=== PATIENT | male | born 1950 | race Caucasian/White ===

== ENCOUNTER 2017-09-14 06:08 | Day surgery (SDC) | payer MEDICARE, MEDICAID ==
[~2017-09-14] VITALS: Ht 162.6 cm; Wt 74.2 kg
[2017-09-14] MEDS ORDERED: FLOMAX PO (07:24)
[2017-09-14] MEDS ORDERED: OMEPRAZOLE PO (07:24)
[2017-09-14] MEDS ORDERED: PROPOFOL 80 ML ONE (07:38)
[2017-09-14 07:42] VITALS: Ht 162.6 cm; Wt 74.2 kg
[2017-09-14 07:45] VITALS: BP 132/76; PULSE 49; RESP 18
--- NOTE | 2017-09-14 08:28 | OPPN ---
Date/Time of Note Date/Time of Note DATE: 09/14/17 TIME: 08:26 Operative Report Preoperative Diagnosis Positive occult blood in stool Chronic heartburn History of peptic ulcer Postoperative Diagnosis Hiatal hernia and gastroesophageal reflux disease Gastritis with erosions Transverse colon polyp was removed using biopsy forceps Internal hemorrhoids Operation/Procedure Performed Esophagogastroduodenoscopy and biopsy Colonoscopy and biopsy Surgeon see signature line paraprofessional education assistant None Anesthesia: MAC Estimated blood loss: none Transfusion Required none Specimen Gastric mucosal biopsy Colon polyp biopsy Grafts/Implants none Complications none JUAN ABRAMS MD Sep 14, 2017 08:28
[2017-09-14 09:05] VITALS: BP 147/84; PULSE 48; RESP 16
--- NOTE | 2017-09-15 07:06 | GILP ---
DATE OF PROCEDURE: NAME OF PROCEDURES: 1. Esophagogastroduodenoscopy and biopsy. 2. Colonoscopy and biopsy. SURGEON: Juan Dennis MD PREOPERATIVE DIAGNOSIS: 1. Positive occult blood in stool. 2. Chronic heartburn. 3. History of peptic ulcer disease. POSTOPERATIVE DIAGNOSES: 1. Hiatal hernia and gastroesophageal reflux disease. 2. Gastritis with erosions. 3. Gastric mucosal biopsies were taken for Helicobacter pylori test. 4. Colonoscopy all the way to the cecum. 5. Small transverse colon polyp was removed using the biopsy forceps. 6. Internal hemorrhoids. INDICATION FOR THE PROCEDURE: Mr. Lanre Angel is a 67-year-old male patient who was noted to have positive occult blood in stool. He also had chronic heartburn not completely responding to the rapy. He had history of peptic ulcer disease. The patient was scheduled for endoscopy and colonosc opy for further evaluation. The procedures and possible complications were well explained to the patient, he understood and cons ented to the procedures. DESCRIPTION OF PROCEDURE: Under the influence of anesthesia, the gastroscope was carefully introduc ed into the esophagus and under direct vision it was advanced to the stomach and through the pylorus into the duodenal bulb and descending duodenum. FINDINGS: ESOPHAGUS: The patient had hiatal hernia and gastroesophageal reflux disease. STOMACH: He had gastritis with erosions. Gastric mucosal biopsies were taken for H. pylori test. DUODENUM: Normal. COLONOSCOPY: The colonoscope was carefully introduced in the rectum and under direct vision, it was advanced all the way to the cecum. FINDINGS: The patient had a small transverse colon polyp and it was removed using the biopsy forcep s. He was noted to have internal hemorrhoids. He tolerated the procedures very well and there was no complication from the procedures. At the end of the procedures, he was awake with stable vital signs and he was discharged home to the care of h is family. IMPRESSION: Please see postoperative diagnoses. PLAN: 1. Continue omeprazole. 2. Await H. pylori test report. 3. Next screening colonoscopy in 10 years. Dictated By: JUAN HACKETT/VIRGEN Conf#: [id number] DID#: [id number]
--- NOTE | 2017-09-16 07:48 | CONS ---
DATE OF ADMISSION: 09/14/2017 DATE OF CONSULTATION: PREOPERATIVE GASTROENTEROLOGY CONSULTATION Dear Dr. Ricardo: I thank you very much for this kind referral. HISTORY OF PRESENT ILLNESS: Mr. Lanre Iyer is a 67-year-old male patient who has been refer red to me for further evaluation of positive occult blood in the stool. There is no past history of colon neoplasm. The patient never had screening colonoscopy. His appetite has been good, and he i s not losing any weight. The patient has chronic heartburn not completely responding to therapy wit h omeprazole. The patient has a history of bleeding peptic ulcer disease. He is not taking any non steroidal anti-inflammatory agents. No history of gallstones or liver disease. Not hypertensive or diabetic. No heart disease, lung problem or kidney disease. The patient has an enlarged prostate. Nonsmoker, no alcohol abuse. No family history of gastrointestinal tract neoplasm. ALLERGIES: NO HISTORY OF DRUG ALLERGIES. MEDICATIONS: 1. Omeprazole 40 mg p.o. daily. 2. Flomax 0.4 mg p.o. daily. PHYSICAL EXAMINATION: GENERAL: He is 5 feet 7 inches tall, weighs 161 pounds. BMI is 25. Blood pressure is 134/76. HEART: Normal heart sounds. LUNGS: Clear. ABDOMEN: Soft. No masses. Normal bowel sounds. NEUROLOGIC: Normal neurological exam. IMPRESSION: 1. Positive occult blood in the stool. 2. The patient never had screening colonoscopy. 3. Chronic heartburn not completely responding to therapy with omeprazole. 4. History of bleeding peptic ulcer disease. 5. Enlarged prostate. PLAN: Colonoscopy and upper endoscopy for further evaluation. Follow up with the primary MD for mo nitoring BMI and blood pressure. The procedures and possible complications were well explained to the patient. They understand and c onsent to the procedures. I thank you once again. With warmest personal regards. Dictated By: JUAN HACKETT/VIRGEN Conf#: [id number] DID#: [id number]
== END 2017-09-14 18:16 | disposition home or self-care (01) ==
LOC: GIL 06:08
PROVIDERS: ATTEND Internal Medicine Gastroenterology
DX: K92.1 Melena (principal); K44.9 Diaphragmatic hernia without obstruction or gangrene; K21.9 Gastro-esophageal reflux disease without esophagitis; K29.70 Gastritis, unspecified, without bleeding; K64.8 Other hemorrhoids
CPT/HCPCS: 87081; 88305